=== PATIENT | female | born 1960 | race Asian ===

== ENCOUNTER → 2021-03-10 07:42 | Outpatient (CLI) | payer OTHER, SELFPAY ==
[2021-03-10] MEDS: COVID-19 VACC, Ad26(JANSSEN)/PF 0.5 ML IM (07:50)
== END ==
PROVIDERS: Visit Provider Internal Medicine
DX: Z23 Encounter for immunization (principal)
CPT/HCPCS: 0031A; 91303

== ENCOUNTER 2023-03-22 10:12 | Emergency (ER) | payer OTHER, MEDICAID, SELFPAY ==
[2023-03-22] VITALS (23 sets, daily range): BP systolic 116–195; BP diastolic 54–106; PULSE 101–126; RESP 17–48; TEMP 36.3; O2SAT 87–97; BMI 22.1
--- NOTE | 2023-03-22 10:23 | DI.RAD.S_ITS ---
PROCEDURE: XR CHEST 1V INDICATIONS: suspected sepsis TECHNIQUE: One view of the chest was acquired. COMPARISON: None. FINDINGS: Surgical changes and devices: None. Lungs and pleura: Lungs are clear. No pleural effusions or pneumothorax. Mediastinum: Mediastinal contours appear normal. Heart size is normal. Bones and chest wall: No suspicious bony lesions. Overlying soft tissues appear unremarkable. IMPRESSION: No acute pulmonary process. Dictated by: Nicole Hernandez M.D. on 03/22/2023 at 10:51 Approved by: Nicole Hernandez M.D. on 03/22/2023 at 10:51
[2023-03-22] MEDS: ALBUTEROL/IPRATROPIUM 3 ML AMPUL INH (10:32)
[2023-03-22 10:34] LABS: Add Manual Diff / Slide Review NO; Basophils Absolute Auto 100 /uL (0-100); Basophils Percent Auto 1.1 % (0-2); Eosinophils Absolute Auto 1700 /uL (0-450); Eosinophils Percent Auto 13.7 % (2-4); Hematocrit 44.5 % (36-46); Hemoglobin 14.8 g/dL (12.0-16.0); Lymphocytes Absolute Auto 2900 /uL (1100-4500); Lymphocytes Percent Auto 23.2 % (25-40); Mean Corpuscular HGB Conc 33.1 % (30-36); Mean Corpuscular Hemoglobin 25.5 PG (26-34); Mean Corpuscular Volume 76.8 fL (80-100); Monocytes Absolute Auto 700 /uL (0-900); Monocytes Percent Auto 5.7 % (3-14); Neutrophils Absolute Auto 7000 /uL (1500-7000); Neutrophils Percent Auto 56.3 % (50-75); Platelet Count 358 X10^3/uL (150-400); Red Cell Distribution Width 14.3 % (11.6-14.8); White Blood Cell Count 12.5 X10^3/uL (4.5-11.0)
[2023-03-22 10:41] LABS: Prothrombin Time 11.7 SECONDS (10.1-12.7)
[2023-03-22 10:43] LABS: PTT Partial Thromboplastin Tim 29 SECONDS (26-36)
[2023-03-22 10:45] LABS: Alanine Aminotransferase 19 IU/L (<35); Albumin 5.1 g/dL (3.5-5.0); Albumin Globulin Ratio 1.2 (1.0-2.8); Alkaline Phosphatase 94 U/L (38-126); Aspartate Aminotransferase 29 IU/L (14-36); BUN Creatinine Ratio 12.5 (6-22); Bilirubin Total 0.6 mg/dL (0.2-1.3); Blood Urea Nitrogen 10 mg/dL (7-17); Calcium 9.5 mg/dL (8.4-10.2); Carbon Dioxide 25 mmol/L (22-32); Chloride 97 mmol/L (98-107); Creatine Kinase 300 U/L (30-135); Estimated Glomerular Filt Rate > 60 mL/min (>60); Globulin 4.2 g/dL (1.7-4.1); Glucose 149 mg/dL (80-110); HEMOLYSIS < 15 (0-50); Lactate (Lactic Acid) 2.8 mmol/L (0.7-2.1); Lipase 127 U/L (23-300); Potassium 3.8 mmol/L (3.4-5.1); Sodium 137 mmol/L (137-145); Total Protein 9.3 g/dL (6.3-8.2)
[2023-03-22] MEDS: SODIUM CHLORIDE 0.9% 1,000 ML 1000 ML IV (10:49)
[2023-03-22 10:57] LABS: NT-proBNP (BNP-Adult 18+) 35 pg/mL (<125); Troponin I < 0.012 ng/mL (0.01-0.034)
[2023-03-22 11:01] LABS: Procalcitonin < 0.03 ng/mL (<0.5)
[2023-03-22 11:09] LABS: CKMB % Relative Index 1.2 % (1.5-5.0); Creatine Kinase MB 3.63 ng/mL (<2.37)
--- NOTE | 2023-03-22 11:21 | DI.CT.S_ITS ---
PROCEDURE: CT ANGIO CHEST PE PROTOCOL INDICATIONS: soa TECHNIQUE: After the administration of intravenous contrast, 2 mm thick sections acquired from the pulmonary apices to the posterior costophrenic angles. 3-dimensional maximum intensity projection (MIP) coronal and sagittal reformats were then acquired through the thorax. For radiation dose reduction, the following was used: automated exposure control, adjustment of mA and/or kV according to patient size. COMPARISON: [facility], , XR CHEST 1V, 03/22/2023, 10:34. FINDINGS: Image quality: Suboptimal opacification of the pulmonary arteries. Pulmonary arteries: Pulmonary arteries are normal in size, and demonstrate no intraluminal filling defects to suggest central pulmonary embolism. Secondary to opacification of the pulmonary arteries, distal branches cannot be evaluated. Lungs and pleura: Small scattered areas of ground-glass opacity are present within the lungs most predominantly in the right apex. Mediastinum: Heart size is normal, without pericardial effusion. No mediastinal or hilar adenopathy. Thoracic aorta is normal in caliber and enhancement. Esophagus is normal in caliber, without hiatal hernia. Bones and chest wall: No suspicious bony lesions. Ribs and thoracic spine appear intact throughout. Thyroid gland is unremarkable. No axillary or supraclavicular adenopathy. Abdomen: Visualized upper abdominal solid organs appear normal in the early arterial phase of enhancement. IMPRESSION: No central pulmonary embolism. Distal branches cannot be evaluated secondary to luminal opacification. No effusions or consolidations. Dictated by: Nicole Hernandez M.D. on 03/22/2023 at 13:05 Approved by: Nicole Hernandez M.D. on 03/22/2023 at 13:07
[2023-03-22] MEDS: ALBUTEROL/IPRATROPIUM 3 ML AMPUL 6 ML INH (11:24)
--- NOTE | 2023-03-22 11:24 | ED_ITS ---
HPI - SOB/Dyspnea General Chief Complaint: Shortness of Breath/Dyspnea Stated Complaint: shortness of breath, fatigue, coughing Time Seen by Provider: 03/22/23 11:15 Source: patient and family Mode of arrival: Ambulatory Limitations: no limitations History of Present Illness HPI Narrative: Patient here with her niece. She desires her knees to translate. Does not want real estate legal assistant services. Patient has been short of breath for the past 5 days. She just came back visiting [facility] 2 days ago. While in [facility], 5 days ago became short of breath and was given Flonase and albuterol inhaler. Denies any calf pain. Denies any chest pain. Patient has auditory wheezing. No history of asthma. No fever or chills. Has had a cough and wheezing as well. Patient denies any nausea or vomiting. Again, no prior history asthma does not smoke. No known sick contacts. Respiratory therapist contacted for evaluation treatment. DuoNeb started. Related Data Previous Rx's Medication Instructions Recorded albuterol sulfate 90 mcg/actuation 2 inhalation inhalation QID PRN 03/22/23 aerosol inhaler (Ventolin HFA) shortness of breath or wheezing #6.7 grams fluticasone propionate 44 1 puff inhalation BID #10.6 grams 03/22/23 mcg/actuation HFA aerosol inhaler prednisone 20 mg tablet 40 mg PO DAILY #8 tabs 03/22/23 Allergies Allergy/AdvReac Type Severity Reaction Status Date / Time No Known Drug Allergies Allergy Verified 03/22/23 10:56 Review of Systems Review of Systems Narrative: GENERAL: negative chills, fatigue, malaise, fever, sweats. HEENT: negative sinus pain, ear pain, sore throat RESPIRATORY: Positive dyspnea, cough CARDIOVASCULAR: negative chest pain, palpitations GASTROINTESTINAL: negative nausea, vomiting, abdominal pain : negative dysuria, frequency, hematuria MUSCULOSKELETAL: negative muscle or bony pain SKIN: negative rash, skin lesions NEUROLOGIC: negative weakness, numbness ROS Unobtainable: All systems reviewed & are unremarkable except as noted in HPI and below Patient History Social History Smoking Status: Never smoker Smoking Status: Never smoker alcohol intake frequency: 0-2 drinks per day Substance Use Type: does not use Exam Narrative Exam Narrative: GENERAL: in no distress, not toxic not dyspneic HEAD: Normocephalic. EYES: Pupils equal round ENT: Mucous membranes moist. NECK: Trachea midline. CARDIOVASCULAR: Tachycardia with Regular rate and rhythm without murmurs RESPIRATORY: There is bilateral wheezing and rhonchi. Patient is dyspneic but airway is protected. Able to speak short sentences., not tripoding, no accessory neck muscle use GASTROINTESTINAL: Abdomen soft, non-tender EXTREMITIES: No gross deformities. BACK: No flank tenderness. NEURO: AOx4. SKIN: Warm and dry PSYCH: Not anxious, is cooperative Initial Vital Signs Initial Vital Signs: Vital Signs Temperature 97.4 F L 03/22/23 10:15 Pulse Rate 118 H 03/22/23 10:15 Respiratory Rate 34 H 03/22/23 10:15 Blood Pressure 184/87 H 03/22/23 10:15 Pulse Oximetry 94 03/22/23 10:15 Oxygen Delivery Method Room Air 03/22/23 10:15 Course Orders Ordered: Discontinued Medications Albuterol/Ipratropium (Albuterol/Ipratropium 3 Ml Ampul) 3 ml INH NOW ONE Stop: 03/22/23 10:31 Last Admin: 03/22/23 10:32 Dose: 3 ml Documented By: PRIYANKA Albuterol/Ipratropium (Albuterol/Ipratropium 3 Ml Ampul) 6 ml INH NOW ONE Stop: 03/22/23 11:21 Last Admin: 03/22/23 11:24 Dose: 6 ml Documented By: PAULA Sodium Chloride (Normal Saline 0.9%) 1,000 mls @ 1,000 mls/hr IV BOLUS ONE Stop: 03/22/23 11:22 Last Infusion: 03/22/23 12:31 Dose: 0 mls/hr Documented By: Admin: 03/22/23 10:49 Dose: 1,000 mls/hr Documented By: NR Methylprednisolone (Methylprednisolone 125 Mg/2 Ml Vial) 125 mg IV NOW ONE Stop: 03/22/23 11:22 Last Admin: 03/22/23 12:40 Dose: 125 mg Documented By: NR Ondansetron HCl (Ondansetron 4 Mg Odt) 4 mg SL NOW PRN PRN Reason: Nausea And Vomiting Ondansetron HCl (Ondansetron 4 Mg/2 Ml Inj) 4 mg IV NOW PRN PRN Reason: Nausea And Vomiting Vital Signs Vital signs: Vital Signs - 8 hr 03/22/23 10:15 03/22/23 10:17 03/22/23 10:18 Temperature 97.4 F L Pulse Rate 118 H 117 H Respiratory Rate 34 H Blood Pressure 184/87 H 184/87 H Pulse Oximetry 94 89 L Oxygen Delivery Method Room Air Oxygen Flow Rate Fraction of Inspired Oxygen 03/22/23 10:18 03/22/23 10:30 03/22/23 10:30 Temperature Pulse Rate 115 H 104 H Respiratory Rate 22 Blood Pressure 183/94 H Pulse Oximetry 94 95 Oxygen Delivery Method Oxygen Flow Rate Fraction of Inspired Oxygen 03/22/23 10:45 03/22/23 10:46 03/22/23 10:46 Temperature Pulse Rate 107 H 108 H Respiratory Rate 33 H 33 H Blood Pressure 195/106 H Pulse Oximetry 94 94 Oxygen Delivery Method Oxygen Flow Rate Fraction of Inspired Oxygen 03/22/23 11:24 03/22/23 10:32 03/22/23 11:00 Temperature Pulse Rate 111 H 104 H Respiratory Rate 28 H 26 H Blood Pressure 174/81 H Pulse Oximetry 96 94 Oxygen Delivery Method Room Air Room Air Oxygen Flow Rate 0 Fraction of Inspired Oxygen 03/22/23 11:00 03/22/23 11:15 03/22/23 11:15 Temperature Pulse Rate 109 H 108 H Respiratory Rate 35 H 30 H Blood Pressure 155/73 H Pulse Oximetry 89 L 95 Oxygen Delivery Method Room Air Room Air Oxygen Flow Rate Fraction of Inspired Oxygen 03/22/23 11:30 03/22/23 11:30 03/22/23 11:45 Temperature Pulse Rate 109 H Respiratory Rate 33 H Blood Pressure 169/87 H 152/65 H Pulse Oximetry 97 Oxygen Delivery Method Oxygen Flow Rate Fraction of Inspired Oxygen 03/22/23 11:45 03/22/23 12:01 03/22/23 12:02 Temperature Pulse Rate 111 H 126 H Respiratory Rate 32 H 32 H Blood Pressure 162/72 H Pulse Oximetry 93 94 Oxygen Delivery Method Oxygen Flow Rate Fraction of Inspired Oxygen 03/22/23 12:02 03/22/23 12:15 03/22/23 12:15 Temperature Pulse Rate 120 H 110 H Respiratory Rate 29 H 29 H Blood Pressure 139/58 L Pulse Oximetry 96 90 L Oxygen Delivery Method Room Air Oxygen Flow Rate Fraction of Inspired Oxygen MDM - SOB/Dyspnea Lab Data 03/22/23 10:20 03/22/23 10:20 Labs: Lab Results 03/22/23 03/22/23 03/22/23 Range/Units 10:20 10:20 10:20 WBC 12.5 H (4.5-11.0) X10^3/uL RBC 5.80 H (4.0-5.2) X10^6/uL Hgb 14.8 (12.0-16.0) g/dL Hct 44.5 (36-46) % MCV 76.8 L (80-100) fL MCH 25.5 L (26-34) PG MCHC 33.1 (30-36) % RDW 14.3 (11.6-14.8) % Plt Count 358 (150-400) X10^3/uL Neut % (Auto) 56.3 (50-75) % Lymph % (Auto) 23.2 L (25-40) % [place] % (Auto) 5.7 (3-14) % Eos % (Auto) 13.7 H (2-4) % Baso % (Auto) 1.1 (0-2) % Neut # (Auto) 7000 (0033-5138) /uL Lymph # (Auto) 2900 (9833-8823) /uL [place] # (Auto) 700 (0-900) /uL Eos # (Auto) 1700 H (0-450) /uL Baso # (Auto) 100 (0-100) /uL PT 11.7 (10.1-12.7) SECONDS INR 1.0 (0.9-1.3) APTT 29 (26-36) SECONDS Sodium 137 (137-145) mmol/L Potassium 3.8 (3.4-5.1) mmol/L Chloride 97 L (98-107) mmol/L Carbon Dioxide 25 (22-32) mmol/L BUN 10 (7-17) mg/dL Creatinine 0.80 (0.52-1.04) mg/dL Estimated GFR > 60 (>60) mL/min BUN/Creatinine Ratio 12.5 (6-22) Glucose 149 H (80-110) mg/dL Lactate (0.7-2.1) mmol/L Calcium 9.5 (8.4-10.2) mg/dL Total Bilirubin 0.6 (0.2-1.3) mg/dL AST 29 (14-36) IU/L ALT 19 (<35) IU/L Alkaline Phosphatase 94 (38-126) U/L Total Creatine Kinase 300 H (30-135) U/L CK-MB (CK-2) 3.63 H (<2.37) ng/mL CK-MB (CK-2) Rel Index 1.2 L (1.5-5.0) % Troponin I < 0.012 (0.01-0.034) ng/mL NT-Pro-B Natriuret Pep 35 (<125) pg/mL Total Protein 9.3 H (6.3-8.2) g/dL Albumin 5.1 H (3.5-5.0) g/dL Globulin 4.2 H (1.7-4.1) g/dL Albumin/Globulin Ratio 1.2 (1.0-2.8) Lipase 127 (23-300) U/L Procalcitonin < 0.03 (<0.5) ng/mL Chlamy pneumoniae PCR (Not Detect) Adenovirus (PCR) (Not Detect) B. pertussis DNA (PCR) (Not Detecte) B.parapertussis DNA PCR (Not Detecte) Coronavirus OC43 (PCR) (Not Detect) Coronavirus HKU1 (PCR) (Not Detect) Coronavirus 229E (PCR) (Not Detect) SARS-CoV-2 (PCR) (Not Detecte) Coronavirus NL63 (PCR) (Not Detect) Human Metapneumovir PCR (Not Detect) Influenza Type A (PCR) (Not Detect) Influenza Type B (PCR) (Not Detect) M. pneumoniae (PCR) (Not Detect) Parainfluenza 1 (PCR) (Not Detect) Parainfluenza 2 (PCR) (Not Detect) Parainfluenza 3 (PCR) (Not Detect) Parainfluenza 4 (PCR) (Not Detect) RSV (PCR) (Not Detect) Entero/Rhino (PCR) (Not Detect) 03/22/23 03/22/23 03/22/23 Range/Units 10:20 10:20 12:40 WBC (4.5-11.0) X10^3/uL RBC (4.0-5.2) X10^6/uL Hgb (12.0-16.0) g/dL Hct (36-46) % MCV (80-100) fL MCH (26-34) PG MCHC (30-36) % RDW (11.6-14.8) % Plt Count (150-400) X10^3/uL Neut % (Auto) (50-75) % Lymph % (Auto) (25-40) % [place] % (Auto) (3-14) % Eos % (Auto) (2-4) % Baso % (Auto) (0-2) % Neut # (Auto) (2353-3805) /uL Lymph # (Auto) (3849-6552) /uL [place] # (Auto) (0-900) /uL Eos # (Auto) (0-450) /uL Baso # (Auto) (0-100) /uL PT (10.1-12.7) SECONDS INR (0.9-1.3) APTT (26-36) SECONDS Sodium (137-145) mmol/L Potassium (3.4-5.1) mmol/L Chloride (98-107) mmol/L Carbon Dioxide (22-32) mmol/L BUN (7-17) mg/dL Creatinine (0.52-1.04) mg/dL Estimated GFR (>60) mL/min BUN/Creatinine Ratio (6-22) Glucose (80-110) mg/dL Lactate 2.8 H 3.8 H (0.7-2.1) mmol/L Calcium (8.4-10.2) mg/dL Total Bilirubin (0.2-1.3) mg/dL AST (14-36) IU/L ALT (<35) IU/L Alkaline Phosphatase (38-126) U/L Total Creatine Kinase (30-135) U/L CK-MB (CK-2) (<2.37) ng/mL CK-MB (CK-2) Rel Index (1.5-5.0) % Troponin I (0.01-0.034) ng/mL NT-Pro-B Natriuret Pep (<125) pg/mL Total Protein (6.3-8.2) g/dL Albumin (3.5-5.0) g/dL Globulin (1.7-4.1) g/dL Albumin/Globulin Ratio (1.0-2.8) Lipase (23-300) U/L Procalcitonin (<0.5) ng/mL Chlamy pneumoniae PCR Not detected (Not Detect) Adenovirus (PCR) Not detected (Not Detect) B. pertussis DNA (PCR) Not detected (Not Detecte) B.parapertussis DNA PCR Not detected (Not Detecte) Coronavirus OC43 (PCR) Not detected (Not Detect) Coronavirus HKU1 (PCR) Not detected (Not Detect) Coronavirus 229E (PCR) Not detected (Not Detect) SARS-CoV-2 (PCR) Not detected (Not Detecte) Coronavirus NL63 (PCR) Not detected (Not Detect) Human Metapneumovir PCR Not detected (Not Detect) Influenza Type A (PCR) Not detected (Not Detect) Influenza Type B (PCR) Not detected (Not Detect) M. pneumoniae (PCR) Not detected (Not Detect) Parainfluenza 1 (PCR) Not detected (Not Detect) Parainfluenza 2 (PCR) Not detected (Not Detect) Parainfluenza 3 (PCR) Not detected (Not Detect) Parainfluenza 4 (PCR) Not detected (Not Detect) RSV (PCR) Not detected (Not Detect) Entero/Rhino (PCR) Not detected (Not Detect) Urine Dip Bedside Urine Glucose Negative Bedside Urine Bilirubin - Negative Bedside Urine Ketone - Negative Urine Specific [place] 1.010 Bedside Urine Occult Blood - Negative Bedside Urine pH 6.0 Bedside Urine Protein - Negative Bedside Urine Urobilinogen - Negative Bedside Urine Nitrite - Negative Bedside Urine Leukocytes - Negative Esterase Imaging Data Chest x-ray: Radiologist's Impression: PROCEDURE:? XR CHEST 1V ? INDICATIONS:? suspected sepsis ? TECHNIQUE:? One view of the chest was acquired.? ? COMPARISON:? None. ? FINDINGS:? ? Surgical changes and devices:? None.? ? Lungs and pleura:? Lungs are clear.? No pleural effusions or pneumothorax.? ? Mediastinum:? Mediastinal contours appear normal.? Heart size is normal.? ? Bones and chest wall:? No suspicious bony lesions.? Overlying soft tissues appear unremarkable.? ? IMPRESSION:? No acute pulmonary process. ? ? Dictated by: Nicole Hernandez M.D. on 03/22/2023 at 10:51 ? ? Approved by: Nicole Hernandez M.D. on 03/22/2023 at 10:51 ? DENITA Narrative Medical decision making narrative: After history and exam CBC CMP troponin EKG BNP breathing treatments chest x-ray CT chest Solu-Medrol ordered MDM CC: Dyspnea Complicating co-morbidities: Recent foreign travel Data collected from: Patient and niece Medical records reviewed: No previous visits here for this complaint Differential considered: Includes but not limited to pulmonary embolism/CHF/asthma/bronchitis/pneumonia Exam documented above, pertinent findings include: Bilateral wheezing Lab Test results independently reviewed as above. Pertinent findings: WBC 12.5 troponin less than 0.012 total CK 300 CK-MB 3.63 respiratory panel negative Independently reviewed EKG as above sinus tachycardia rate [address] elevation or depression Imaging studies independently reviewed: Chest x-ray no acute process, CT chest PE no acute process Consultations: 1:[address] Mariscal, hospitalist has seen patient at my request for admission. However he has re-evaluated patient and at this time patient is 96% room air walking and desires discharge home. No dyspnea. Treatments: DuoNeb x3 Solu-Medrol Re-evaluations: 1:50 p.m.. Patient desires discharge home. Niece at bedside. Patient is no longer short of breath. Improved wheezing and lung sounds on exam. Walking in the room 96% room air. Return precautions reviewed with patient and niece, she does have a primary care at [facility] but I will also give her a referral. Prescriptions provided as well. Return precautions reviewed with them. They desire discharge home. Discussion: Appropriate for discharge home. Patient has been evaluated by hospitalist and patient is improved. Feels much better after breathing treatment. And steroids. Return precautions reviewed with her and knees. They desire discharge home. Precautions provided. Primary care referral given as well. Diagnosis: asthma exacerbation Discharge Plan Departure Patient Disposition: Home Clinical Impression: Asthma with exacerbation Instructions: DI for Asthma -- Adult Activity Restrictions/Additional Instructions: Please continue steroid pack tomorrow. See family doctor next week for re- evaluation. Call provided primary care referral phone number to [facility]. Call [phone]. Please continue inhaler as needed for shortness of breath or wheezing. Return immediately if worse if any questions or concerns or if any trouble breathing. At this time your laboratory studies and CT scan are reassuring. Prescriptions: New albuterol sulfate [Ventolin HFA] 90 mcg/actuation HFA aerosol inhaler 2 inhalation INHALATION QID PRN (Reason: shortness of breath or wheezing) Qty: 6.7 0RF fluticasone propionate 44 mcg/actuation HFA aerosol inhaler 1 puff inhalation BID Qty: 10.6 0RF Rx Instructions: administer with spacer prednisone 20 mg tablet 40 mg PO DAILY Qty: 8 0RF Referrals: Miscellaneous,Doctor, MD [Primary Care Provider] - Stand Alone Forms: Patient Portal/API
[2023-03-22 11:26] LABS: Adenovirus Not Detected (Not Detect); B. parapertussis Not Detected (Not Detecte); Bordetella pertussis Not Detected (Not Detecte); Chlamydophila pneumoniae Not Detected (Not Detect); Coronavirus 229E Not Detected (Not Detect); Coronavirus HKU1 Not Detected (Not Detect); Coronavirus NL 63 Not Detected (Not Detect); Coronavirus OC43 Not Detected (Not Detect); Human Metapneumovirus Not Detected (Not Detect); Human Rhinovirus/Enterovirus Not Detected (Not Detect); Influenza A Not Detected (Not Detect); Influenza B Not Detected (Not Detect); Mycoplasma pneumoniae Not Detected (Not Detect); Parainfluenza Virus 1 Not Detected (Not Detect); Parainfluenza Virus 2 Not Detected (Not Detect); Parainfluenza Virus 3 Not Detected (Not Detect); Parainfluenza Virus 4 Not Detected (Not Detect); Respiratory Syncytial Virus Not Detected (Not Detect); SARS- CoV-2 Not Detected (Not Detecte)
--- NOTE | 2023-03-22 11:33 | RT ---
pt shoaib jane tx well, on ropom air and states better air movement
--- NOTE | 2023-03-22 11:33 | RT ---
Post 6ml duoneb administration, noting improvement in aeration bilaterally. Still noting expiratory wheezing t/o.
[2023-03-22 12:30] LABS: Reflexed Lactate in 2 Hours Y
[2023-03-22] MEDS: methylPREDNISolone 125 MG/2 ML VIAL IV (12:40)
[2023-03-22 12:57] LABS: Lactate 2HR (Lactic Acid Rflx) 3.8 mmol/L (0.7-2.1)
--- NOTE | 2023-03-22 13:53 | PM.CN ---
History of Present Illness Consult details Date Patient Seen: 03/22/23 Time Patient Seen: 13:53 Chief complaint: shortness of breath, fatigue, coughing Narrative: This is a 62 year old female, just came to the [place] two days ago from [facility]. History is obtained through interpretation provided by family at bedside, did not wish for interpretation services. She reports that she has been feeling short of breath for months now. She was given fluticasone nasal spray and albuterol for possible allergies in [place], but over the last few days she has had a more difficult time breathing. She endorses chronic cough with clear sputum production, but denies fever, chills, nausea, vomiting. She does have some mild chest pain in her ribs with coughing. She came in today for worsening breathing starting this morning but it has been worsening over the past 3 days. In the emergency room, patient was tachypnic, she did briefly desaturate per the chart to 89% on room air, primarily with ambulation. She was mildly tachycardic but afebrile. CXR was unremarkable. Given recent travel CTA performed which was negative for acute process including large pulmonary emboli. She was given steroids and nebulizer therapies with some improvement. Medicine was asked to evaluate for admission. Upon my evaluation, the patient was feeling much improved, oxygen saturations were in the upper 90s, and she was not tachypnic. She was able to ambulate in her room without dyspnea, and felt much improved. Oxygen stayed in the mid 90s on room air with ambulation. Discussed continued observation or discharge home with the patient and daughter, and patient opted for discharge home. Home medications: fluticasone nasal spray and albuterol inhaler, prn use only. Meds Home Medications and Allergies Home Medications Medication Instructions Recorded Confirmed Type albuterol sulfate 90 mcg/actuation 2 inhalation inhalation QID PRN 03/22/23 Rx aerosol inhaler (Ventolin HFA) shortness of breath or wheezing #6.7 grams fluticasone propionate 44 1 puff inhalation BID #10.6 grams 03/22/23 Rx mcg/actuation HFA aerosol inhaler prednisone 20 mg tablet 40 mg PO DAILY #8 tabs 03/22/23 Rx Allergies Allergy/AdvReac Type Severity Reaction Status Date / Time No Known Drug Allergies Allergy Verified 03/22/23 10:56 Review of Systems Review of Systems Narrative: All other systems reviewed with the patient and are negative unless otherwise stated. Exam Vital Signs (past 8 hours): - 03/22/23 10:15 03/22/23 10:17 03/22/23 10:18 Temperature 97.4 F L Pulse Rate 118 H 117 H Respiratory Rate 34 H Blood Pressure 184/87 H 184/87 H Pulse Oximetry 94 89 L Oxygen Delivery Method Room Air Oxygen Flow Rate Fraction of Inspired Oxygen 03/22/23 10:18 03/22/23 10:30 03/22/23 10:30 Temperature Pulse Rate 115 H 104 H Respiratory Rate 22 Blood Pressure 183/94 H Pulse Oximetry 94 95 Oxygen Delivery Method Oxygen Flow Rate Fraction of Inspired Oxygen 03/22/23 10:45 03/22/23 10:46 03/22/23 10:46 Temperature Pulse Rate 107 H 108 H Respiratory Rate 33 H 33 H Blood Pressure 195/106 H Pulse Oximetry 94 94 Oxygen Delivery Method Oxygen Flow Rate Fraction of Inspired Oxygen 03/22/23 11:24 03/22/23 10:32 03/22/23 11:00 Temperature Pulse Rate 111 H 104 H Respiratory Rate 28 H 26 H Blood Pressure 174/81 H Pulse Oximetry 96 94 Oxygen Delivery Method Room Air Room Air Oxygen Flow Rate 0 Fraction of Inspired Oxygen 03/22/23 11:00 03/22/23 11:15 03/22/23 11:15 Temperature Pulse Rate 109 H 108 H Respiratory Rate 35 H 30 H Blood Pressure 155/73 H Pulse Oximetry 89 L 95 Oxygen Delivery Method Room Air Room Air Oxygen Flow Rate Fraction of Inspired Oxygen 03/22/23 11:30 03/22/23 11:30 03/22/23 11:45 Temperature Pulse Rate 109 H Respiratory Rate 33 H Blood Pressure 169/87 H 152/65 H Pulse Oximetry 97 Oxygen Delivery Method Oxygen Flow Rate Fraction of Inspired Oxygen 03/22/23 11:45 03/22/23 12:01 03/22/23 12:02 Temperature Pulse Rate 111 H 126 H Respiratory Rate 32 H 32 H Blood Pressure 162/72 H Pulse Oximetry 93 94 Oxygen Delivery Method Oxygen Flow Rate Fraction of Inspired Oxygen 03/22/23 12:02 03/22/23 12:15 03/22/23 12:15 Temperature Pulse Rate 120 H 110 H Respiratory Rate 29 H 29 H Blood Pressure 139/58 L Pulse Oximetry 96 90 L Oxygen Delivery Method Room Air Oxygen Flow Rate Fraction of Inspired Oxygen Fraction of Inspired Oxygen 21 SaO2/FiO2 Ratio 457 Oxygen Delivery Method Room Air Oxygen Flow Rate 0 Narrative Exam Narrative: General:? Patient is well developed and well nourished, in no distress at this time. HEENT:? Normocephalic, atraumatic, extraocular muscles intact, oral pharynx is clear and mucous membranes are moist. Neck: supple and symmetric, trachea is midline, no cervical adenopathy. Negative for JVD Chest:? Normal AP diameter and contour without kyphoscoliosis, no tachypnea, equal chest rise bilaterally. Lungs:? diffuse expiratory wheezing, no rhonchi or rales. Cardio:?tachycardic with regular rhythm, no m/r/g. Abdomen: S NT ND. Musculoskeletal:? Muscle strength and tone are equal within normal limits, no deformity. Extremities: No edema or joint effusions. No cyanosis or clubbing. Skin:? Pale,? Warm to touch,dry and intact without rashes, ulcerations or petechiae.? Neuro:? Alert and orientated x3,? sensation to touch intact in all extremities, no gross deficits noted of cranial nerves. Psych:? Patient has a well-kept appearance, appropriate affect, mental status attitude thought context and judgment are appropriate for age. Objective Labs 03/22/23 10:20 03/22/23 10:20 Labs: Laboratory Results - last 24 hr 03/22/23 03/22/23 03/22/23 10:20 10:20 10:20 WBC 12.5 H RBC 5.80 H Hgb 14.8 Hct 44.5 MCV 76.8 L MCH 25.5 L MCHC 33.1 RDW 14.3 Plt Count 358 Neut % (Auto) 56.3 Lymph % (Auto) 23.2 L [place] % (Auto) 5.7 Eos % (Auto) 13.7 H Baso % (Auto) 1.1 Neut # (Auto) 7000 Lymph # (Auto) 2900 [place] # (Auto) 700 Eos # (Auto) 1700 H Baso # (Auto) 100 PT 11.7 INR 1.0 APTT 29 Sodium 137 Potassium 3.8 Chloride 97 L Carbon Dioxide 25 BUN 10 Creatinine 0.80 Estimated GFR > 60 BUN/Creatinine Ratio 12.5 Glucose 149 H Lactate Calcium 9.5 Total Bilirubin 0.6 AST 29 ALT 19 Alkaline Phosphatase 94 Total Creatine Kinase 300 H CK-MB (CK-2) 3.63 H CK-MB (CK-2) Rel Index 1.2 L Troponin I < 0.012 NT-Pro-B Natriuret Pep 35 Total Protein 9.3 H Albumin 5.1 H Globulin 4.2 H Albumin/Globulin Ratio 1.2 Lipase 127 Procalcitonin < 0.03 Chlamy pneumoniae PCR Adenovirus (PCR) B. pertussis DNA (PCR) B.parapertussis DNA PCR Coronavirus OC43 (PCR) Coronavirus HKU1 (PCR) Coronavirus 229E (PCR) SARS-CoV-2 (PCR) Coronavirus NL63 (PCR) Human Metapneumovir PCR Influenza Type A (PCR) Influenza Type B (PCR) M. pneumoniae (PCR) Parainfluenza 1 (PCR) Parainfluenza 2 (PCR) Parainfluenza 3 (PCR) Parainfluenza 4 (PCR) RSV (PCR) Entero/Rhino (PCR) 03/22/23 03/22/23 03/22/23 10:20 10:20 12:40 WBC RBC Hgb Hct MCV MCH MCHC RDW Plt Count Neut % (Auto) Lymph % (Auto) [place] % (Auto) Eos % (Auto) Baso % (Auto) Neut # (Auto) Lymph # (Auto) [place] # (Auto) Eos # (Auto) Baso # (Auto) PT INR APTT Sodium Potassium Chloride Carbon Dioxide BUN Creatinine Estimated GFR BUN/Creatinine Ratio Glucose Lactate 2.8 H 3.8 H Calcium Total Bilirubin AST ALT Alkaline Phosphatase Total Creatine Kinase CK-MB (CK-2) CK-MB (CK-2) Rel Index Troponin I NT-Pro-B Natriuret Pep Total Protein Albumin Globulin Albumin/Globulin Ratio Lipase Procalcitonin Chlamy pneumoniae PCR Not detected Adenovirus (PCR) Not detected B. pertussis DNA (PCR) Not detected B.parapertussis DNA PCR Not detected Coronavirus OC43 (PCR) Not detected Coronavirus HKU1 (PCR) Not detected Coronavirus 229E (PCR) Not detected SARS-CoV-2 (PCR) Not detected Coronavirus NL63 (PCR) Not detected Human Metapneumovir PCR Not detected Influenza Type A (PCR) Not detected Influenza Type B (PCR) Not detected M. pneumoniae (PCR) Not detected Parainfluenza 1 (PCR) Not detected Parainfluenza 2 (PCR) Not detected Parainfluenza 3 (PCR) Not detected Parainfluenza 4 (PCR) Not detected RSV (PCR) Not detected Entero/Rhino (PCR) Not detected PFSH Tobacco & Substance Use Smoking Status: Never smoker Assessment & Plan Assessment & Plan narrative: 1. Asthma vs COPD exacerbation with resolved acute respiratory failure with hypoxia. - discharge home with fluticasone proprionate control medication, albuterol inhaler to use as needed and 40 mg prednisone x40 days - unclear if this is asthma or COPD, symptoms could be related to both - given patient's improvement, resolution of hypoxia and tachypnea, she meets discharge requirements and is stable for discharge home at this time. Did offer observation admission but patient and family wished to discharge home if able. - recommend outpatient evaluation with pulmonary function testing to clarify if asthma or COPD. 2. Leukocytosis - likely reactive, cough has been present for months without change and procalcitonin is negative along with respiratory panel. 3. Elevated lactate - - likely elevated d-lactate related to nebulizer therapies. Code: Full Dispo: Discharge home from the ER I have utilized all available immediate resources to obtain, update, or review the patient's current medications.
== END 2023-03-22 14:16 | disposition home or self-care (01) ==
PROVIDERS: Emergency Provider Emergency Medicine
DX: J45.901 Unspecified asthma with (acute) exacerbation (principal); R06.00 Dyspnea, unspecified; Z20.822 Contact with and (suspected) exposure to COVID-19
CPT/HCPCS: 36415; 71045; 71275; 80053; 81003; 82550; 82553; 83605; 83690; 83880; 84145; 84484; 85025; 85610; 85730; 87040; 87633; 93005; 93010; 94640; 96361; 96374; 99284; 99285; J2930; Q9967

== ENCOUNTER → 2023-05-29 10:15 | Outpatient (CLI) | payer OTHER, MEDICAID, SELFPAY ==
--- NOTE | 2023-05-29 10:17 | DI.RAD.S_ITS ---
PROCEDURE: XR CHEST 2V INDICATIONS: Shortness of breath TECHNIQUE: 2 views of the chest were acquired. COMPARISON: [facility], CT, CT ANGIO CHEST PE PROTOCOL, 03/22/2023, 11:28. [facility], CR, XR CHEST 1V, 03/22/2023, 10:34. FINDINGS: Surgical changes and devices: None. Lungs and pleura: Lungs are clear. No pleural effusions or pneumothorax. Mediastinum: Mediastinal contours are normal. Heart size is normal. Bones and chest wall: No suspicious bony abnormalities. Soft tissues appear unremarkable. IMPRESSION: No acute cardiopulmonary disease. Dictated by: Yelena Luna M.D. on 05/29/2023 at 12:22 Approved by: Yelena Luna M.D. on 05/29/2023 at 12:22
== END ==
PROVIDERS: PCP Family Medicine; Referring Provider Physician Assistant; Visit Provider Physician Assistant
DX: R06.00 Dyspnea, unspecified (principal)
CPT/HCPCS: 71046

== ENCOUNTER → 2023-08-22 08:43 | Outpatient (CLI) | payer SELFPAY ==
--- NOTE | 2023-08-22 08:44 | DI.RAD.S_ITS ---
PROCEDURE: XR FOOT LT MIN 3V INDICATIONS: pain, dropped something on it a few wks ago TECHNIQUE: 3 views of the foot were acquired. COMPARISON: None. FINDINGS: Bones: There is a subacute fracture, mildly displaced, at the 2nd metatarsal base. Additional suspected minimally displaced fracture of the 3rd metatarsal base. [id number] valgus alignment at the 1st MTP, with degenerative changes. Soft tissues: No suspicious calcifications. IMPRESSION: Subacute fractures at the 2nd and 3rd metatarsal bases. Dictated by: Suresh Pizarro M.D. on 08/22/2023 at 13:08 Approved by: Suresh Pizarro M.D. on 08/22/2023 at 13:09
== END ==
PROVIDERS: PCP Family Medicine; Referring Provider Family Medicine; Visit Provider Family Medicine
DX: S92.322A Displaced fracture of second metatarsal bone, left foot, initial encounter for closed fracture (principal); S92.335A Nondisplaced fracture of third metatarsal bone, left foot, initial encounter for closed fracture; S90.32XA Contusion of left foot, initial encounter; W20.8XXA Other cause of strike by thrown, projected or falling object, initial encounter
CPT/HCPCS: 73630

== ENCOUNTER → 2023-11-12 09:06 | Outpatient (CLI) | payer SELFPAY ==
[2023-11-12 10:13] LABS: Influenza A - CEPHEID Flu A NEGATIVE (NEGATIVE); Influenza B - CEPHEID Flu B NEGATIVE (NEGATIVE); Respiratory Syncytial Virus POSITIVE (Negative)
[2023-11-12 10:19] LABS: COVID-19 CEPHEID 4-PLEX PCR Negative (Negative)
== END ==
PROVIDERS: PCP Family Medicine; Visit Provider Physician Assistant
DX: R05.1 Acute cough (principal)
CPT/HCPCS: 0241U